=== PATIENT | female | born 1990 | race Caucasian/White ===

== ENCOUNTER 2018-01-13 20:27 | Emergency (ER) | payer BC ==
[2018-01-13] MEDS ORDERED: BUTALB/ACETAMINOPHEN/CAFFEINE 1 TAB EACH PO ONE (21:24)
[2018-01-13] MEDS ORDERED: PSEUDOEPHEDRINE HCL 30 MG TABLET PO ONE (21:24)
[2018-01-13] MEDS ORDERED: DIPHENHYDRAMINE HCL 50 MG CAPSULE PO ONE (21:24)
--- NOTE | 2018-01-13 21:27 | ER Document Report ---
HPI - HPI Pain Level: 4 Context: Patient is a 27-year-old female presents emergency department the chief complaint of sinus congestion and headache. Patient states that she has had sinus congestion, states his been taking [id number] Tylenol, Motrin and was prescribed Tylenol with codeineRunny nose for the past 3 weeks. States that her headaches started Friday. With minimal improvement. She denies any dizziness, near syncope, vision changes. She describes it as a pressure and ache at the base of her neck. As well as sinus pressure around her eyes. She denies any focal tenderness over her sinuses, fever, purulent drainage - DERM Skin Color: Normal, [place] Past Medical History - Social History Smoking Status: Unknown if Ever Smoked Family History: Reviewed & Not Pertinent Patient has suicidal ideation: No Patient has homicidal ideation: No Renal/ Medical History: Denies: Hx Peritoneal Dialysis Vertical Provider Document - CONSTITUTIONAL Agree With Documented VS: Yes Notes: PHYSICAL EXAM GENERAL: Alert, interacts well. HEAD: Normocephalic, atraumatic. EYES: Pupils equal, round, and reactive to light. Extraocular movements intact. ENT: Oral mucosa moist, tongue midline. NECK: Full range of motion. Supple. Trachea midline. No evidence of nuchal rigidity LUNGS: Clear to auscultation bilaterally, no wheezes, rales, or rhonchi. No respiratory distress. HEART: Regular rate and rhythm. No murmurs, gallops, or rubs. EXTREMITIES: Moves all 4 extremities spontaneously. No edema, radial and dorsalis pedis pulses 2/4 bilaterally. No cyanosis. NEUROLOGICAL: Alert and oriented x4. Face symmetric. Tongue protrudes midline. Extraocular motions intact. Pupils are 2 mm and equally reactive. Normal speech, normal gait. 5 out of 5 strength in both the distal and proximal upper and lower extremities bilaterally. Straight leg raise negative. Sensation is grossly intact throughout. PSYCH: Normal affect, normal mood. SKIN: Warm, dry, normal turgor. No rashes or lesions noted. - INFECTION CONTROL TRAVEL OUTSIDE OF THE [place] IN LAST 30 DAYS: No Course - Re-evaluation Re-evalutation: 01/13/18 21:24 Patient is a 27-year-old female who is hemodynamically stable, no acute distress afebrile. Presentation is consistent with a sinus congestion headache with associated tension given it has been present for 5 days. she did improve with medications given here. does not have any focal neurologic deficits, nuchal rigidity, vital signs are within normal limits no papilledema. Patient is otherwise no acute distress and hemodynamically stable. Low index for suspicion of acute subarachnoid hemorrhage meningitis or mass. Low suspicion for acute life-threatening etiology with intact neuro exam therefore no additional imaging or laboratory testing is indicated. Will discharge patient home with strict follow-up with PCP - Vital Signs Vital signs: Temp Pulse Resp BP Pulse Ox 98.3 F 100 16 116/81 98 01/13/18 20:40 01/13/18 20:40 01/13/18 20:40 01/13/18 20:40 01/13/18 20:40 Discharge - Discharge Clinical Impression: Sinus congestion Headache Qualifiers: Headache type: tension-type Headache chronicity pattern: acute headache Condition: Good Disposition: HOME, SELF-CARE Instructions: Headache ([facility]), Sinusitis ([facility]) Prescriptions: Oxycodone HCl/Acetaminophen [Percocet 5-325 mg Tablet] 1 - 2 tab PO Q4H PRN #15 tablet PRN Reason:
[2018-01-13] MEDS ORDERED: CYCLOBENZAPRINE HCL 10 MG TABLET PO ONE (22:34)
[2018-01-13] MEDS ORDERED: OXYCODONE HCL IR 5 MG TABLET PO ONE (22:34)
[2018-01-14 00:23] VITALS: BP 115/72
== END 2018-01-14 00:23 | disposition home or self-care (01) ==
LOC: ER 20:27
DX: R51 Headache (principal); R68.89 Other general symptoms and signs
CPT/HCPCS: 99284; J3490